=== PATIENT | female | born 1955 | race Caucasian/White ===

== ENCOUNTER → 2017-02-24 | Outpatient (CLI) | payer OTHER ==
[~2017-02-24] MED LIST: CMDUNK PO; FRRS300 PO; MRPSRUNK PO; MULT-506 PO; OXYC-57 PO
--- NOTE | 2017-02-24 15:07 | MAMMOGRAPHY REPORT ---
BILATERAL DIGITAL SCREENING MAMMOGRAM TOMOSYNTHESIS WITH CAD: 02/24/2017 CLINICAL HISTORY: Routine screening. Patient has no complaints. TECHNIQUE: Breast tomosynthesis in addition to standard 2D mammography was performed. Current study was also evaluated with a Computer Aided Detection (CAD) system. COMPARISON: Comparison is made to exams dated: 10/16/2015 mammogram, 07/17/2014 mammogram, 06/27/2013 pili mogram, 03/01/2012 mammogram, 02/21/2011 mammogram, and 02/16/2010 mammogram - [facility] BREAST COMPOSITION: There are scattered areas of fibroglandular density in both breasts. FINDINGS: No suspicious masses, calcifications, or areas of architectural distortion are noted in ei ther breast. There has been no significant interval change compared to prior exams. IMPRESSION: ACR BI-RADS CATEGORY 1: NEGATIVE There is no mammographic evidence of malignancy. A 1 year screening mammogram is recommended. The pa tient will receive written notification of the results. Approximately 10% of breast cancers are not detected with mammography. A negative mammographic report should not delay biopsy if a clinically suggestive mass is present. Natividad Mcdowell M.D. ah/:02/24/2017 14:43:53 Entrepreneurial Finance Professor: Aixa DENNIS)(M), [facility] letter sent: Normal 1/2 BI-RADS Code: ACR BI-RADS Category 1: Negative
== END | disposition home or self-care (01) ==
LOC: C.MAMM 13:51
PROVIDERS: ATTEND Family Medicine
DX: Z12.31 Encounter for screening mammogram for malignant neoplasm of breast (principal)

== ENCOUNTER 2018-12-28 08:09 | Inpatient (IN) ==
--- NOTE | 2018-11-26 14:08 | Anesthesiology Consultation ---
Date of Service November 26, 2018 Assessment & Plan (1) Encounter for pre-operative examination: Chart Review Chart Review: Patient seen in Pre Admission Testing Teaching & Discussion Pre-Anesthesia Teaching/Discussion Notes: Instructed NPO after midnight before surgery,except medications with 15 cc of water. Medication instructions provided according to the PAT guidelines. History Surgery Operation Date: 12/28/18 08:50 Proposed Procedures p Left Total Knee Arthroplasty - Tristan Lane MD Height/Weight Height: 5 ft 4 in Weight: 90.718 kg Allergies Allergy/AdvReac Type Severity Reaction Status Date / Time No Known Allergies Allergy Unknown Verified 11/19/18 08:27 Medications Home Medications Medication Instructions Recorded Confirmed Last Taken amoxicillin 500 mg PO DAILY PRN 11/19/18 11/19/18 Unknown Past Medical History Medical History Osteoarthritis Past Family History Family History Aunt Family history of diabetes mellitus Uncle Family history of diabetes mellitus Family/Other Family history of diabetes mellitus Father FHx: lung cancer Grandmother (Maternal) FHx: pancreatic cancer Past Surgical History Surgical History History of colonoscopy History of total right knee replacement Hx of cholecystectomy Hx of tonsillectomy Social History Smoking Status: Never smoker Do You Dip or Chew Tobacco: No Hx Alcohol Use: No Hx Substance Use: No Review of Systems Patient denies chest pain, shortness of breath, dyspnea on exertion, joint pain, reflux, cough, wheezing, palpitations. Physical Exam Vital Signs VITALS BP P TEMP SP02 RESP PHYSICAL Full neck and c-spine range of motion. Full TMJ range of motion. TMD __ finger breaths Mallampati Score ___ Dentition: intact Lungs: clear throughout to auscultation Cardiac: regular rate and rhythm, no murmurs noted Spine: normal Carotid arteries: negative bruit Extremities: no edema
--- NOTE | 2018-11-26 14:09 | PAT Medication Instructions ---
Medication Instructions Date of Service November 26, 2018 Home Medications amoxicillin 500 mg PO DAILY PRN Continue as directed amoxicillin 500 mg PO DAILY PRN (prior to dental procedures) Other Notes If you have any questions please call us at [phone] or [phone] or [phone] or [phone]
--- NOTE | 2018-11-27 08:26 | Anesthesiology Consultation ---
Date of Service November 27, 2018 Assessment & Plan (1) Encounter for pre-operative examination: - Possible difficult intubation: due to anatomy Chart Review Chart Review: Pending: Refer to Additional Notes / Consult section (pending preop testing (labs, EKG, CXR)) and Patient seen in Pre Admission Testing History Surgery Operation Date: 12/28/18 08:50 Proposed Procedures p Left Total Knee Arthroplasty - Tristan Lane MD Height/Weight Height: 5 ft 4 in Weight: 95.9 kg Allergies Allergy/AdvReac Type Severity Reaction Status Date / Time No Known Allergies Allergy Unknown Verified 11/19/18 08:27 Medications Home Medications Medication Instructions Recorded Confirmed Last Taken amoxicillin 500 mg PO DAILY PRN 11/19/18 11/19/18 Unknown Past Medical History Medical History Obesity Osteoarthritis Exercise / Class Metabolic Activity II 4-5 Yardwork/Stairs/Walk up hill Past Family History Family History Aunt Family history of diabetes mellitus Uncle Family history of diabetes mellitus Family/Other Family history of diabetes mellitus Father FHx: lung cancer Grandmother (Maternal) FHx: pancreatic cancer Past Surgical History Surgical History History of colonoscopy History of total right knee replacement Hx of cholecystectomy Hx of tonsillectomy Past Anesthesia History No Hx of Anesthesia Complications and No Family Hx of Anesthesia Complications History of PONV No Hx of PONV and Hx of Motion Sickness Social History Smoking Status: Never smoker Do You Dip or Chew Tobacco: No Hx Alcohol Use: No Hx Substance Use: No Review of Systems Patient denies chest pain, shortness of breath, dyspnea on exertion, cough, wheezing, palpitations. Physical Exam Vital Signs VITALS BP 141/84 P 74 TEMP 98.1 SP02 94%RA RESP 16 PHYSICAL Full neck and c-spine range of motion. Full TMJ range of motion. TMD 3 finger breaths Mallampati Score 4 (small oral opening) Dentition: intact, caps/crown several "all over" Lungs: clear throughout to auscultation Cardiac: regular rate and rhythm, no murmurs noted Spine: normal Carotid arteries: negative bruit Extremities: no edema
--- NOTE | 2018-11-27 08:55 | XRay Report ---
XR chest Pre-admission PA/Lat CLINICAL HISTORY: 63 years-old Female presenting with preoperative assessment. TECHNIQUE: PA and lateral views of the chest were obtained. COMPARISON: 02/16/2010. FINDINGS: Cardiomediastinal silhouette normal. Lungs and pleural spaces clear. Dextroscoliosis and multilevel d egenerative changes of the thoracic spine. Cholecystectomy clips noted. IMPRESSION: 1. No acute cardiopulmonary disease. Electronically signed by: Yg Landeros M.D. 11/27/2018 8:53 AM
[2018-11-27 10:36] LABS: Basophils # (auto) 0.07 K/uL (0-0.2); Basophils % (auto) 1.4 %; Eosinophils # (auto) 0.27 K/uL (0-0.5); Eosinophils % (auto) 5.4 %; Hematocrit (blood only) 46.1 % (37-47); Hemoglobin 15.1 g/dL (12.0-16.0); Immature Granulocytes # (auto) 0.01 K/uL (0.00-0.02); Immature Granulocytes % (auto) 0.2 %; Lymphocytes # (auto) 1.74 K/uL (1.2-3.4); Lymphocytes % (auto) 34.7 %; Mean Corpuscular Hemoglobin 30.3 pg (25-34); Mean Corpuscular Hgb Conc 32.8 g/dL (32-36); Mean Corpuscular Volume 92.4 fL (80-100); Mean Platelet Volume 11.7 fL (7.4-10.4); Neutrophils # (auto) 2.52 K/uL (1.4-6.5); Neutrophils % (auto) 50.3 %; Platelet Count 276 K/uL (130-400); RDW Coefficient of Variation 13.7 % (11.5-14.5); RDW Standard Deviation 46.2 fL (36.4-46.3); Red Blood Count 4.99 M/uL (4.2-5.4); White Blood Count 5.01 K/uL (4.8-10.8)
[2018-11-27 10:50] LABS: Calcium 9.6 mg/dl (8.5-10.1); Creatinine Clr Calc Pharmacy 77.1 ml/min; Est GFR (African American) 85.1; Est GFR (Non-African American) 73.4; Potassium 4.4 mmol/L (3.5-5.1)
[2018-11-27 10:52] LABS: INR 1.1 (0.9-1.1); Partial Thromboplastin Ratio 0.9; Partial Thromboplastin Time 24.2 Seconds (21.0-31.0); Prothrombin Time 10.9 Seconds (9.0-12.0)
--- NOTE | 2018-12-23 12:54 | History and Physical Report ---
DATE OF ADMISSION: 12/28/2018 CHIEF COMPLAINT: Left knee pain and discomfort. 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 She has got a long history of knee problems and had her right knee replaced about 8 years ago. The right knee continues to do well. She has become more and more limited by left knee pain and discomfort. She describes global pain in her left knee. The more she walks, the more it hurts. She has been through extensive conservative treatment in the past including injections and oral medicines, which have not helped much lately. She has nighttime pain. She has difficulty going up and down steps. She would like to have her left knee replaced. PAST MEDICAL HISTORY: Significant for: 1. Arthritis. 2. Mild obesity, BMI 36. PAST SURGICAL HISTORY: Previous surgeries include: 1. Cholecystectomy. 2. Right knee replacement on 03/05/2010. 3. Tonsillectomy. ALLERGIES: None. CURRENT MEDICINES: None. SOCIAL HISTORY: A 63-year-old female. She lives in [place]. Does not smoke. No alcohol intake. FAMILY HISTORY: Noncontributory. REVIEW OF HISTORY: Negative for diabetes, neurologic problem, vascular problems or other bleeding disorders. No chest pain or shortness of breath. No history of DVT or PE. No known bleeding problems. PHYSICAL EXAMINATION: GENERAL: Shows a pleasant, middle-aged female. Looks to be in good health. HEENT: Benign. NECK: Supple, no lymphadenopathy. LUNGS: Clear to auscultation. HEART: Has a regular rate and rhythm. ABDOMEN: Soft, nontender, nondistended. EXTREMITIES: Grossly neurovascularly intact except as follows. Examination of the left knee reveals the patient ambulates independently. She has got slight varus alignment to her knee. Range of motion is about 5-10 degrees short of full extension to 120 degrees of flexion. She is tender over the medial joint line. Small knee effusion. No pain with hip motion. Examination of the right knee reveals a well-healed incision. No swelling. Range of motion 0-120. Good straight leg raise. X-RAYS: X-rays of the left knee reviewed. It shows advanced left knee DJD. She has complete loss of medial joint space. She has subchondral sclerosis. She has got osteophytes medially and laterally. Right knee replacement looks to be in good position and without problems. 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 She has failed conservative treatment and would like to have her left knee replaced. PLAN: We will proceed with left knee replacement. The risks and benefits of this procedure were explained to the patient including but not limited to DVT, PE, , infection, neurological injury, vascular injury, bleeding problem, pain, limited range of motion, stiffness, failure to relieve symptoms, incomplete relief of symptoms, need for further surgery in future, fracture, leg length inequality, nerve palsy, need for blood transfusion, etc. The patient understands and desires to proceed. Informed consent was obtained. As far as discharge plans, she is planning to be discharged to home. I do not think she wants home health and likely do outpatient therapy.
[~2018-12-28 08:09] MED LIST changes: +ACETAMINOPHEN 500 MG TAB PO SCH; +BUPIVACAINE 0.5 % 5 MG/1 ML PF 10ML VIAL ONE; +BUPIVACAINE LIPOSOME/PF 266 MG, BUPIVACAINE/EPINEPHRINE 50 ML, SODIUM CHLORIDE 0.9% 30 ... INFIL SCH; +CEFAZOLIN 2000MG 2,000 MG/15 ML SYR IV SCH; -CMDUNK PO; +EPINEPHrine INJ 1 MG/ML AMP ONE; +FAMOTIDINE 20 MG TAB PO SCH; -FRRS300 PO; +GABAPENTIN 300 MG CAP PO SCH; +LR 500ML BOLUS, THEN 15ML/HR IV SCH; +LR 60ML/HR IV SCH; +METOCLOPRAMIDE HCL 10 MG TABLET PO SCH; -MRPSRUNK PO; -MULT-506 PO; -OXYC-57 PO; +ROPIVACAINE 0.5% 5 MG/ML 30 ML VIAL ONE; +SCOPOLAMINE 1.5 MG TDSY TD SCH; +TRANEXAMIC ACID 1,000 MG **IV Intra-op IV SCH
[2018-12-28] MEDS ORDERED: PROPOFOL IV EMULSION 10 MG/ML 20 ML VIAL IV ONE (10:10)
[2018-12-28] MEDS ORDERED: MIDAZOLAM HCL 1 MG/ML 2ML VIAL ONE (10:10)
[2018-12-28] MEDS ORDERED: fentaNYL citrate 100 MCG/2 ML VIAL ONE (10:10)
--- NOTE | 2018-12-28 10:34 | History & Physical Bridge Note ---
Date of Service December 28, 2018 History & Physical Bridge Note I have examined the patient, reviewed the History & Physical and in the interval since the performance of the History & Physical I have noted the following changes of clinical significance: no changes noted
[2018-12-28] MEDS ORDERED: BUPIVACAINE/EPINEPHRINE 0.25% 1:200,000 30 ML VIAL ONE (10:43)
[2018-12-28] MEDS ORDERED: BACITRACIN INJ 50,000 UNIT VIAL ONE (10:43)
[2018-12-28] MEDS ORDERED: BUPIVACAINE LIPOSOME 1.3% 266 MG/20 ML VIAL ONE (10:43)
[2018-12-28] MEDS ORDERED: SODIUM CHLORIDE 0.9% PF 50 ML VIAL ONE (10:43)
[2018-12-28] MEDS ORDERED: ePHEDrine sulfate 50 MG/ML AMP IV PRN (11:02)
[2018-12-28] MEDS ORDERED: ATROPINE SULFATE 0.1 MG/ML 10ML SYR IV PRN (11:02)
--- NOTE | 2018-12-28 12:48 | Post Operative Brief Note ---
PG Immediate Post Op with CF Date of Surgery December 28, 2018 Pre & Post Diagnosis Operation Date: 12/28/18 10:40 Pre-Op Diagnosis: LEFT KNEE OSTEOARTHRITIS Post-Op Diagnosis: LEFT KNEE OSTEOARTHRITIS I identified the patient and participated in the time-out.: Yes Procedure Operation Date: 12/28/18 10:40 Actual Procedures p Left Total Knee Arthroplasty(Left) - Tristan Lane MD Surgeon Tristan Lane MD Shipping Helper Leobardo, PAC Estimated Blood Loss 50 Findings Consistent with Post-Op Diagnosis Fluids 1500 cc Specimens Specimen Description: Permanent Solution: A.) Left Knee Bone and Tissue Drains Jeffries Catheter (16F 10ml; patent,clean,dry,intact) Anesthesia Type Spinal MAC Complications none Disposition Accompanied Patient To Recovery: No Disposition: Recovery Room
--- NOTE | 2018-12-28 13:06 | Operative Report ---
Post Operative Report Pre & Post Diagnosis Operation Date: 12/28/18 10:40 Pre-Op Diagnosis: LEFT KNEE OSTEOARTHRITIS Post-Op Diagnosis: LEFT KNEE OSTEOARTHRITIS I identified the patient and participated in the time-out.: Yes Procedure Operation Date: 12/28/18 10:40 Actual Procedures p Left Total Knee Arthroplasty(Left) - Tristan Lane MD Surgeon Tristan Lane MD Laboratory Chemical Assistant Leobardo, PAC Estimated Blood Loss 50 Findings Consistent with Post-Op Diagnosis Operative findings revealed advanced left knee DJD with grade 4 [id number] disease of the medial and patellofemoral compartments. She had a moderate-sized joint effusion. She had eburnation of the medial femoral condyle medial tibial plateau. She had a fixed varus deformity to her knee. 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 She underwent a right knee replacement about 8 years ago and is done well from this. Over the past 5 years she developed increased pain discomfort her left knee which became more debilitating and unresponsive conservative care. She like to proceed with left total knee arthroplasty. Description of Procedure Operative implants consisted of: 1. Biomet Vanguard size 60 left posterior bifemoral component. 2. Biomet Vanguard size 67 tibial tray. 3. Biomet 10 mm posterior stabilized polyethylene insert. 4. 28 x 8 all poly-patella. Patient was taken to the operating room identified and placed on the operating table supine position. Contact areas were properly padded. IV antibiotics were provided by anesthesia team. Spinal anesthetic and abductor canal block had been provided in the holding area. Jeffries catheter was placed in sterile fashion. Left eye turn was then placed in the left lower extremities and prepped and draped in usual sterile fashion. Left leg was elevated and exsanguinated with use of an Esmarch and the tourniquet was placed at 300 mmHg. An anterior approach to the left knee was then performed the longitudinal incisions over the patella. Sharp passes cut through subcutaneous extent of the extensor mechanism. A medial parapatellar arthrotomy incision was made. Some subperiosteal dissection was carried out medially. The fat pad was resected from the patella tendon. Lateral patellofemoral ligament was released. Patella was everted knee was flexed with the osteophytes taken off the distal femur. The ACL PCL were then released and the disc femur and the tibia subluxated anteriorly. The external tibial alignment jig was then placed in the interface of tibia and adjusted 16 mm medially. Proximal tibial cut was made to remove about a millimeter bone from the most efficient aspect medial tibial plateau. Some osteophytes were taken off medial and posterior medially. Tibia sized to a size 67. Attention down the femur. The distal femur was then with a sharp drill. Intramedullary canal was suction. A left 5 degree distal femoral cutting guide was placed. It was a distal femoral cut was then made to take an additional 3 mm bone off the distal femur. The femur was then sized to a size 60. We did down size this almost an entire size. The AP cutting block was pinned parallel to the epicondylar axis which was 4 degrees of external rotation. The anterior cut, anterior chamfer, posterior cut, posterior chamfer cuts were made. Box cutting guide was placed and just slightly lateral and the box cut was made. The knee was flexed. The remnant of the medial lateral menisci were excised with the osteophytes taken off the posterior aspect of the femur. A trial femoral component was placed with the tibial tray was pinned in maximum external rotation and the drill and stem punch were used to create defect in the proximal tip for the tibial tray. Knee was then trialed the 10 mm insert fit most appropriately. Attention down the patella. The patella was cleaned of all soft tissues. Patella thickness measured 22 mm in thickness was cut down to 14. Size a size 28 patella. Locals were drilled for the 28 patella. Lateral osteophyte was removed. Patella button was placed. Knee was taken through range of motion patella tracked nicely with no thumbs test. Attention turned to placing the permanent components. All trial implants were removed. A bone plug was placed in the disc femur limit blood loss put a double batch Palacos G cement was mixed. A Biomet Vanguard size 60 left posterior bifemoral component, size 67 tibial tray, a 10 mm posterior stabilized polyethylene insert, and a 28 x 8 all poly-patella then cement in place. Knees brought him to full extension to the cement hardened. Final cement check was then performed. Pericapsular tissues were injected with total of 100 cc of combination twice of Exparel, 30 cc normal saline, 50 cc of quarter percent Marcaine with epinephrine. The patient did receive 1 g of tranexamic acid. The tourniquet was then let down for final tourniquet time of 58 minutes. Hemostasis assured with electrocautery. The wound was once again irrigated. The extensor mechanism then closed with combination 1 PDS suture #1 Vicryl suture in a [id number] fashion for extensor mechanism check found to be intact the subtenons tissue then closed with 2 Dexon suture in a buried fashion skin was closed skin neeru. Leg was then cleaned dried and sterile dressing was Xeroform for 4 sterile cast padding David bandage were applied. Patient was then transferred to the recovery room in stable condition. Patient tolerated procedure well no complications I attest to the content of the Intraoperative Record and any orders documented therein. Any exceptions are noted below.
--- NOTE | 2018-12-28 13:10 | XRay Report ---
XR knee LT 1 or 2V routine HISTORY: 63 years-old Female Surgical Post Op left knee total joint arthroplasty COMPARISON: Left knee radiographs 05/24/2018 TECHNIQUE: 2 views of the left knee FINDINGS: Left knee total joint arthroplasty and patella resurfacing demonstrates satisfactory alignment. Expec kassie postsurgical soft tissue swelling and deep tissue air with surgical drainage catheter and anterio r midline skin neeru. No acute fracture or retained foreign body. IMPRESSION: Satisfactory alignment of the left knee total joint arthroplasty. The above report was generated using voice recognition software. It may contain grammatical, syntax o r spelling errors. Electronically signed by: Jace Kuo M.D. 12/28/2018 1:09 PM
--- NOTE | 2018-12-28 13:16 | Anesthesiology Progress Note ---
Date of Service December 28, 2018 Anesthesia Post Procedure Vital Signs Vital Signs: Temp Pulse Pulse Resp BP Pulse Ox 12/28/18 13:10 37.0 C 14 132/75 97 12/28/18 13:00 92 H 14 122/78 97 12/28/18 12:53 36.7 C 102 H 14 114/53 L 97 12/28/18 08:54 36.8 C 100 H 18 171/94 H 96 Pain Intensity Left Knee: Pain Intensity: 1 Transfer of Care Handoff Completed per policy Notes Mental Status: alert / awake / arousable Patient Amnestic to Procedure: Yes Nausea / Vomiting: adequately controlled Pain: adequately controlled Airway Patency, RR, SpO2: stable & adequate BP & HR: stable & adequate Hydration State: stable & adequate Neuraxial Anesthesia: was administered and sensory block is resolving Anesthetic Complications: no major complications apparent
[2018-12-28] MEDS ORDERED: ALUMINUM/MAGNESIUM SUSP 30 ML UDC PO PRN (13:27)
[2018-12-28] MEDS ORDERED: MAGNESIUM HYDROXIDE SUSP 30 ML UDC PO PRN (13:27)
[2018-12-28] MEDS ORDERED: BISACODYL 10 MG SUPP PR PRN (13:27)
[2018-12-28] MEDS ORDERED: NALOXONE HCL 0.4 MG/1 ML VIAL/CARP IV PRN (13:27)
[2018-12-28] MEDS ORDERED: METOCLOPRAMIDE HCL INJ 5 MG/ML 2 ML VIAL IV PRN (13:27)
[2018-12-28] MEDS ORDERED: HYDROmorphone INJ 0.5 MG/0.5 ML SYR IV PRN (13:27)
[2018-12-28] MEDS: KETOROLAC 30 MG/ML VIAL IV SCH ×2 (14:24→19:22)
[2018-12-28] MEDS: ACETAMINOPHEN 500 MG TAB PO SCH ×2 (14:25→20:57)
[2018-12-28] MEDS: SODIUM CHLORIDE 0.9% 1000ML 1,000 ML IV SCH (17:05)
[2018-12-28] MEDS: FERROUS GLUCONATE 324 MG TAB PO SCH (18:11)
[2018-12-28] MEDS: ASCORBIC ACID 500 MG TAB PO SCH (18:11)
[2018-12-28] MEDS: OXYCODONE HCL IR 5 MG TAB (IMMEDIATE RELEASE) PO PRN ×2 (18:26→23:57)
[2018-12-28] MEDS: CHECK SCOPOLAMINE PATCH PLACEMENT SCH (18:27)
[2018-12-28] MEDS ORDERED: TRANEXAMIC ACID 1,000 MG in 0.9 % SODIUM CHLORIDE 100 ML IV SCH (19:00)
--- NOTE | 2018-12-28 19:05 | Progress Note ---
DATE: 12/28/2018 SUBJECTIVE: A 63-year-old white female postop from a left knee replacement. She is doing well. Does not have any pain yet. No chest pain or shortness of breath. Not feeling dizzy or lightheaded. OBJECTIVE: VITAL SIGNS: Temperature 36.7. Vital signs are stable. GENERAL: Shows a pleasant, middle-aged female. She is lying in bed, looks comfortable. LUNGS: Clear to auscultation. HEART: Regular rate and rhythm. ABDOMEN: Soft, nontender, nondistended. EXTREMITIES: Grossly neurovascularly intact except as follows: Examination of the left leg reveals the leg to be well aligned. Dressing is clean, dry and intact. She can dorsiflex and plantarflex her foot appropriately. She has got brisk refill. X-RAYS: X-rays of the left knee from recovery room were reviewed. Fairly poor quality films as it is quite rotated. It shows a cemented posterior stabilized total knee arthroplasty. Components looked to be in acceptable position. No obvious problems. ASSESSMENT: A 63-year-old white female postoperative from a left knee replacement, doing well. Pain is controlled. She is neurologically intact. PLAN: 1. DVT prophylaxis including thigh-high TEDs, SCDs, and aspirin twice a day. 2. PT/OT. Weight bear as tolerated. Left total knee protocol. 3. Pain control, doing well with current pain regimen. 4. IV antibiotics x24 hours. 5. Disposition: She is planning to be discharged home and do outpatient therapy once medically stable and recovered.
[2018-12-28] MEDS: CEFAZOLIN 2000MG 2,000 MG/15 ML SYR IV SCH (19:23)
[2018-12-28] MEDS: SENNA 8.6 MG TAB PO SCH (19:24)
[2018-12-28] MEDS: DOCUSATE SODIUM 100 MG CAP PO SCH (19:24)
[2018-12-28] MEDS: ONDANSETRON INJ 2 MG/ML 2 ML VIAL IV PRN (19:29)
[2018-12-28] MEDS: TAPENTADOL HCL ER 50 MG TABCR PO SCH (20:57)
[2018-12-28] MEDS: ASPIRIN 81 MG ECTAB PO SCH (20:58)
[2018-12-29] MEDS: CHECK SCOPOLAMINE PATCH PLACEMENT SCH (00:28)
[2018-12-29] MEDS: KETOROLAC 30 MG/ML VIAL IV SCH ×4 (01:32→19:36)
[2018-12-29] MEDS: CEFAZOLIN 2000MG 2,000 MG/15 ML SYR IV SCH (01:32)
[2018-12-29] MEDS: SODIUM CHLORIDE 0.9% 1000ML 1,000 ML IV SCH (01:50)
[2018-12-29] MEDS: ACETAMINOPHEN 500 MG TAB PO SCH ×3 (05:44→21:18)
[2018-12-29 05:47] LABS: Hematocrit (blood only) 39.2 % (37-47); Hemoglobin 12.6 g/dL (12.0-16.0); Mean Corpuscular Hemoglobin 29.9 pg (25-34); Mean Corpuscular Hgb Conc 32.1 g/dL (32-36); Mean Corpuscular Volume 92.9 fL (80-100); Mean Platelet Volume 10.8 fL (7.4-10.4); Platelet Count 208 K/uL (130-400); RDW Coefficient of Variation 13.6 % (11.5-14.5); RDW Standard Deviation 46.1 fL (36.4-46.3); Red Blood Count 4.22 M/uL (4.2-5.4); White Blood Count 7.51 K/uL (4.8-10.8)
[2018-12-29] MEDS: OXYCODONE HCL IR 5 MG TAB (IMMEDIATE RELEASE) PO PRN ×3 (05:48→18:36)
[2018-12-29 06:15] LABS: BUN Creatinine Ratio 15.8 (10-20); Calcium 8.9 mg/dl (8.5-10.1); Creatinine Clr Calc Pharmacy 81.6 ml/min; Est GFR (African American) 90.2; Est GFR (Non-African American) 77.8; Potassium 4.2 mmol/L (3.5-5.1)
[2018-12-29] MEDS: FERROUS GLUCONATE 324 MG TAB PO SCH ×2 (08:13→17:23)
[2018-12-29] MEDS: DOCUSATE SODIUM 100 MG CAP PO SCH ×2 (08:13→21:18)
[2018-12-29] MEDS: ASPIRIN 81 MG ECTAB PO SCH ×2 (08:13→21:19)
[2018-12-29] MEDS: ASCORBIC ACID 500 MG TAB PO SCH ×2 (08:13→17:23)
[2018-12-29] MEDS: MULTIVITAMIN TAB PO SCH (08:13)
[2018-12-29] MEDS: TAPENTADOL HCL ER 50 MG TABCR PO SCH ×2 (08:16→21:18)
--- NOTE | 2018-12-29 09:05 | Progress Note ---
DATE: 12/29/2018 SUBJECTIVE: A 63-year-old female postop day #1 from left knee replacement. She is doing pretty well. Pain has been reasonably well controlled. No chest pain or shortness of breath. Not feeling dizzy or lightheaded. OBJECTIVE: VITAL SIGNS: Temperature is 36.9. Vital signs stable. GENERAL: Shows a pleasant, middle-aged female. She just came back from the bathroom, sitting in her bedside chair, and looks pretty comfortable. EXTREMITIES: Examination of the left leg reveals the dressing to be clean, dry and intact. Her calf is soft and supple. She can dorsiflex and plantarflex her foot appropriately. She is neurologically intact. LABORATORY DATA: Hemoglobin 12.6, hematocrit 39.2. Electrolytes are stable. ASSESSMENT: A 63-year-old female postop day #1 from left knee replacement, doing pretty well. Pain is controlled. She is neurologically intact. PLAN: 1. DVT prophylaxis including thigh-high TEDs, SCDs, and aspirin twice a day. 2. PT/OT. Weight bear as tolerated. Left total knee protocol. 3. Pain control, doing pretty well with current pain regimen. 4. Disposition: She is planning to be discharged to home and she is going to do outpatient therapy locally.
[2018-12-29] MEDS: SENNA 8.6 MG TAB PO SCH (21:20)
[2018-12-30] MEDS: KETOROLAC 30 MG/ML VIAL IV SCH ×2 (01:57→09:45)
[2018-12-30] MEDS: ACETAMINOPHEN 500 MG TAB PO SCH (05:52)
[2018-12-30] MEDS: OXYCODONE HCL IR 5 MG TAB (IMMEDIATE RELEASE) PO PRN (07:27)
[2018-12-30] MEDS: FERROUS GLUCONATE 324 MG TAB PO SCH (07:59)
[2018-12-30] MEDS: ASPIRIN 81 MG ECTAB PO SCH (07:59)
[2018-12-30] MEDS: ASCORBIC ACID 500 MG TAB PO SCH (08:00)
[2018-12-30] MEDS: MULTIVITAMIN TAB PO SCH (08:00)
[2018-12-30] MEDS: DOCUSATE SODIUM 100 MG CAP PO SCH (08:00)
[2018-12-30] MEDS: TAPENTADOL HCL ER 50 MG TABCR PO SCH (08:02)
[2018-12-30] MEDS: ONDANSETRON INJ 2 MG/ML 2 ML VIAL IV PRN (08:22)
--- NOTE | 2018-12-30 09:03 | Progress Note ---
DATE: 12/30/2018 SUBJECTIVE: A 63-year-old female postop day 2 from a left knee replacement. She is doing well. Had a good night. Pain is controlled. No chest pain or shortness of breath. Not feeling dizzy or lightheaded. OBJECTIVE: VITAL SIGNS: Temperature 37.4. Vital signs stable. GENERAL: Shows a pleasant, middle-aged female. She is sitting up in bed, looks quite comfortable. EXTREMITIES: Examination of the left leg reveals the leg to be well aligned. Dressing is clean, dry and intact. She can dorsiflex and plantarflex her foot appropriately. She is neurologically intact. ASSESSMENT: A 63-year-old female postop day 2 from left knee replacement, doing well. Pain is controlled. She is neurologically intact. PLAN: 1. DVT prophylaxis including thigh-high TEDs, SCDs and aspirin twice a day. 2. PT/OT. Weight bear as tolerated. Left total knee protocol. 3. Pain control, doing well with current pain regimen. 4. Disposition. Plan to discharge to home. She is going to do outpatient therapy.
--- NOTE | 2018-12-31 16:14 | Discharge Summary ---
ADMITTING PHYSICIAN AND SURGEON: Dr. Tristan Lane. ADMITTING DIAGNOSIS: Left knee degenerative joint disease. SURGERY PERFORMED: Left total knee arthroplasty. SECONDARY DIAGNOSES: Arthritis, mild obesity. CONSULTS: None obtained. HISTORY AND PHYSICAL EXAMINATION: Well documented in the patient's chart. HOSPITAL COURSE: The patient was admitted on 12/28/2018 underwent total knee arthroplasty, tolerated the procedure well. There were no complications. She was transferred to the PACU postoperatively and later to the orthopedic floor for further care. She was given Ancef for antibiotic prophylaxis, BERNA stockings, SCDs and aspirin for DVT prophylaxis. Hemoglobin, hematocrit and vital signs were monitored during her hospital stay and remained stable. She did not require any blood transfusions. There were no complications. By postoperative day 2, she was tolerating a regular diet, pain was controlled with oral pain medicine. She was participating in physical therapy. On postop day 2, she was discharged home. She was given printed discharge instructions as well as new prescriptions for extra strength Tylenol, aspirin and oxycodone. Continue home medications, continue physical therapy, weightbearing as tolerated, BERNA stockings. Follow up approximately 2 weeks postop or sooner if there are any problems or concerns.
== END 2018-12-30 10:18 | disposition home or self-care (01) | DRG 470 ==
LOC: ASU 08:09 → 3E 12:51